=== PATIENT | female | born 1965 | race Two or more races ===

== ENCOUNTER 2019-09-17 23:24 | Emergency (ER) | payer SELFPAY ==
[~2019-09-17] VITALS: Ht 154.9 cm; Wt 54.5 kg
[2019-09-17] MEDS ORDERED: ALBU8HFA IH (23:39)
[2019-09-17] MEDS ORDERED: PRED5 PO (23:42)
[2019-09-18] MEDS ORDERED: ALBUTEROL SULFATE 2.5 MG/0.5 ML NEB SOLUTION NEB ONE
[2019-09-18] MEDS ORDERED: IPRATROPIUM BROMIDE 0.5 MG/2.5 ML NEB SOLUTION NEB ONE
[2019-09-18] MEDS ORDERED: MethylPREDNISolone SOD SUCC 125 MG/2 ML VIAL IVP ONE (00:30)
[2019-09-18] MEDS ORDERED: ALBUTEROL SULFATE 5 MG/ML 20 ML NEB SOLN [BULK] NEB ONE ×2 (00:30→01:45)
[2019-09-18] MEDS ORDERED: MAGNESIUM SULFATE 2 GM/WATER 50 ML IV ONE (00:30)
[2019-09-18 01:30] VITALS: BP 122/71
== END 2019-09-18 03:03 | disposition home or self-care (01) ==
LOC: EMS 23:25
DX: J45.901 Unspecified asthma with (acute) exacerbation (principal)
CPT/HCPCS: 93005; 94640; J2930; J3475